=== PATIENT | female | born 1995 | race Caucasian/White ===

== ENCOUNTER 2016-09-04 00:02 | Emergency (ER) | payer MEDICAID ==
[~2016-09-04] VITALS: Ht 152.4 cm; Wt 104.5 kg
[2016-09-04 00:06] VITALS: BP 108/57; TEMP 98.1
[2016-09-04] MEDS ORDERED: TOPAMAX50 MG PO (01:27)
[2016-09-04 02:19] VITALS: PULSE 85
== END 2016-09-04 02:19 | disposition home or self-care (01) ==
LOC: COL.ER 00:02
DX: G43.909 Migraine, unspecified, not intractable, without status migrainosus (principal); Z76.0 Encounter for issue of repeat prescription; G40.909 Epilepsy, unspecified, not intractable, without status epilepticus